=== PATIENT | female | born 1960 | race Caucasian/White ===

== ENCOUNTER → 2018-02-26 | Outpatient (CLI) | payer OTHER | END | disposition home or self-care (01) | LOC: RAD 11:20 | DX: M15.0 Primary generalized (osteo)arthritis (principal); M77.31 Calcaneal spur, right foot; M77.32 Calcaneal spur, left foot ==

== ENCOUNTER 2018-06-20 06:17 | Outpatient (CLI) | payer OTHER ==
[~2018-06-20 06:17] MED LIST: GABAPENTIN600 MG PO
[2018-06-27] MEDS ORDERED: SYNTHROID50 MCG PO (09:05)
[2018-06-27] MEDS ORDERED: CLONAZEPAM0.5 MG PO (09:06)
[2018-06-27] MEDS ORDERED: GABAPENTIN800 MG PO (09:06)
[2018-06-27] MEDS ORDERED: CELEXA20 MG PO (09:06)
[2018-06-27] MEDS ORDERED: TEMAZEPAM30 MG PO (09:07)
[2018-06-27] MEDS ORDERED: PENTOXIFYLLINE400 MG PO (09:07)
[2018-06-27] MEDS ORDERED: LIPITOR20 MG PO (09:07)
[2018-06-27] MEDS ORDERED: DETROL LA4 MG PO (09:08)
[2018-06-27] MEDS ORDERED: VIT D PO (09:08)
== END 2018-06-20 06:45 | disposition home or self-care (01) ==
LOC: LAB 06:17 → RAD 06:17 → LAB 06:45
DX: D64.89 Other specified anemias (principal); E88.89 Other specified metabolic disorders; D68.8 Other specified coagulation defects; N39.0 Urinary tract infection, site not specified; A49.02 Methicillin resistant Staphylococcus aureus infection, unspecified site; Z76.89 Persons encountering health services in other specified circumstances; I49.8 Other specified cardiac arrhythmias

== ENCOUNTER 2018-07-01 05:48 | Day surgery (SDC) | payer OTHER ==
[~2018-07-01 05:48] MED LIST changes: +CELEXA20 MG PO; +CLONAZEPAM0.5 MG PO; +DETROL LA4 MG PO; +GABAPENTIN800 MG PO; +LIPITOR20 MG PO; +PENTOXIFYLLINE400 MG PO; +SYNTHROID50 MCG PO; +TEMAZEPAM30 MG PO; +VIT D PO
== END 2018-07-01 14:15 | disposition home or self-care (01) ==
LOC: CIR.AMB 05:48
DX: G57.61 Lesion of plantar nerve, right lower limb (principal); G57.51 Tarsal tunnel syndrome, right lower limb; M72.2 Plantar fascial fibromatosis

== ENCOUNTER 2018-10-14 07:59 | Outpatient (CLI) | payer OTHER | END 2018-10-14 08:19 | disposition home or self-care (01) | LOC: RAD 07:59 | DX: G43.909 Migraine, unspecified, not intractable, without status migrainosus (principal); R41.2 Retrograde amnesia; M12.9 Arthropathy, unspecified; M19.90 Unspecified osteoarthritis, unspecified site ==

== ENCOUNTER 2018-10-16 08:25 | Outpatient (CLI) | payer OTHER | END 2018-10-16 08:36 | disposition home or self-care (01) | LOC: LAB 08:25 | DX: D64.89 Other specified anemias (principal); M06.4 Inflammatory polyarthropathy ==

== ENCOUNTER 2018-12-20 19:37 | Emergency (ER) | payer OTHER ==
[~2018-12-20] VITALS: Ht 160 cm; Wt 98.0 kg
== END 2018-12-20 21:15 | disposition home or self-care (01) ==
LOC: ER 19:37
DX: J06.9 Acute upper respiratory infection, unspecified (principal)

== ENCOUNTER 2019-06-12 08:16 | Outpatient (CLI) | payer OTHER | END 2019-06-12 08:20 | disposition home or self-care (01) | LOC: RAD 08:16 | DX: M54.2 Cervicalgia (principal) ==

== ENCOUNTER 2019-09-03 09:57 | Outpatient (CLI) | payer OTHER | END 2019-09-03 10:00 | disposition home or self-care (01) | LOC: RAD 09:57 | DX: M25.571 Pain in right ankle and joints of right foot (principal) ==

== ENCOUNTER 2019-12-09 08:26 | Outpatient (CLI) | payer OTHER | END 2019-12-09 08:29 | disposition home or self-care (01) | LOC: RAD 08:26 | DX: M25.561 Pain in right knee (principal); M25.531 Pain in right wrist ==

== ENCOUNTER → 2020-10-19 | Outpatient (CLI) | payer OTHER | END | disposition home or self-care (01) | LOC: MRI 08:15 | PROVIDERS: ATTEND Physical Medicine & Rehabilitation | DX: M48.02 Spinal stenosis, cervical region (principal); M54.2 Cervicalgia | CPT/HCPCS: 72141 ==

== ENCOUNTER 2021-03-01 08:16 | Outpatient (CLI) | payer OTHER | END 2021-03-01 08:27 | disposition home or self-care (01) | LOC: MRI 08:16 | PROVIDERS: ATTEND Internal Medicine Rheumatology | DX: M54.17 Radiculopathy, lumbosacral region (principal); M54.16 Radiculopathy, lumbar region | CPT/HCPCS: 72148 ==

== ENCOUNTER 2021-05-31 13:44 | Outpatient (CLI) | payer OTHER | END 2021-05-31 13:58 | disposition home or self-care (01) | LOC: SONOGRAMA 13:44 → MAMO-SONO 14:45 | PROVIDERS: ATTEND Physical Medicine & Rehabilitation | DX: M75.111 Incomplete rotator cuff tear or rupture of right shoulder, not specified as traumatic (principal); M25.511 Pain in right shoulder ==

== ENCOUNTER 2021-12-07 09:13 | Outpatient (CLI) | payer OTHER | END 2021-12-07 09:17 | disposition home or self-care (01) | LOC: RAD 09:13 | PROVIDERS: ATTEND Physical Medicine & Rehabilitation | DX: M17.0 Bilateral primary osteoarthritis of knee (principal); M54.6 Pain in thoracic spine ==

== ENCOUNTER 2022-04-11 08:31 | Outpatient (CLI) | payer OTHER | END 2022-04-11 08:38 | disposition home or self-care (01) | LOC: RAD 08:31 | PROVIDERS: ATTEND Specialist | DX: R05.3 Chronic cough (principal) ==

== ENCOUNTER 2022-04-12 16:03 | Outpatient (CLI) | payer OTHER | END 2022-04-12 16:06 | disposition home or self-care (01) | LOC: RAD 16:03 | PROVIDERS: ATTEND Physical Medicine & Rehabilitation | DX: M25.571 Pain in right ankle and joints of right foot (principal); G57.50 Tarsal tunnel syndrome, unspecified lower limb ==